=== PATIENT | female | born 1955 | race Hispanic/Latino ===

== ENCOUNTER 2016-02-26 07:21 | Outpatient (CLI) | payer BC ==
--- NOTE | 2016-02-26 11:47 | Mammography Report ---
BILATERAL DIGITAL SCREENING MAMMOGRAM WITH CAD: Comparison is made to a study on April 12, 2014. FINDINGS: Areas of fat necrosis with dystrophic calcifications in the left breast are stable. There are no new masses or suspicious calcifications. Stable parenchymal asymmetry in the upper left breast is noted. No architectural distortion is seen. IMPRESSION: Stable benign findings. BI-RADS CATEGORY: 2 = Benign ACR BI-RADS MAMMOGRAPHIC CODES: 0 = Needs additional imaging evaluation; 1 = Negative; 2 = Benign; 3 = Probably benign; 4 = Suspicious; 5 = Malignant; 6 = Known biopsy-proven malignancy COMMENT: 1. Dense breast tissue, i.e., adenosis, fibrocystic changes, etc., may obscure an underlying neoplasm. 2. Approximately 10% of cancers are not detected with mammography. 3. A negative mammography report should not delay biopsy if a clinically suspicious mass is present. RECOMMENDATION: Annual screening. COMMENT: [facility] follow-up letters are generated [facility].
== END 2016-02-26 07:22 | disposition home or self-care (01) ==
LOC: MAMMO 07:21
PROVIDERS: ATTEND Obstetrics & Gynecology
DX: Z12.31 Encounter for screening mammogram for malignant neoplasm of breast (principal)
CPT/HCPCS: 77067; G0202

== ENCOUNTER 2016-05-01 10:38 | Outpatient (CLI) | payer BC | END 2016-05-01 10:39 | disposition home or self-care (01) | LOC: LAB 10:38 | PROVIDERS: ATTEND Family Medicine | DX: E11.9 Type 2 diabetes mellitus without complications (principal); E78.00 Pure hypercholesterolemia, unspecified | CPT/HCPCS: 36415; 80061; 83036; 84439; 84443 ==

== ENCOUNTER 2017-03-12 07:48 | Outpatient (CLI) | payer BC ==
--- NOTE | 2017-03-12 11:03 | Mammography Report ---
Screening mammogram: The patient is post bilateral breast reduction surgery. 2 areas of asymmetry in the left breast consistent with fat necrosis. One area is associated with benign-appearing calcifications and there is another group in the right breast. The remainder of the breast pattern is mostly fatty replaced with mild architectural changes consistent with prior surgery. Compared to prior exam in February 2016 the fibroglandular pattern is unchanged. Minimal increase in benign appearing calcifications bilaterally. CAD views. Impression: Benign findings consistent with prior surgery. Recommendation: Annual mammogram followup. BI-RADS CATEGORY: 2 = Benign ACR BI-RADS MAMMOGRAPHIC CODES: 0 = Needs additional imaging evaluation; 1 = Negative; 2 = Benign; 3 = Probably benign; 4 = Suspicious; 5 = Malignant; 6 = Known biopsy-proven malignancy COMMENT: 1. Dense breast tissue, i.e., adenosis, fibrocystic changes, etc., may obscure an underlying neoplasm. 2. Approximately 10% of cancers are not detected with mammography. 3. A negative mammography report should not delay biopsy if a clinically suspicious mass is present.
== END 2017-03-12 07:49 | disposition home or self-care (01) ==
LOC: MAMMO 07:48
PROVIDERS: ATTEND Obstetrics & Gynecology
DX: Z12.31 Encounter for screening mammogram for malignant neoplasm of breast (principal); Z98.890 Other specified postprocedural states
CPT/HCPCS: 77067

== ENCOUNTER 2017-03-20 10:36 | Outpatient (CLI) | payer BC | END 2017-03-20 10:37 | disposition home or self-care (01) | LOC: LABHHL 10:36 | PROVIDERS: ATTEND Obstetrics & Gynecology | DX: Z01.419 Encounter for gynecological examination (general) (routine) without abnormal findings (principal) | CPT/HCPCS: 87591 ==

== ENCOUNTER 2017-03-24 12:20 | Outpatient (CLI) | payer BC | END 2017-03-24 12:21 | disposition home or self-care (01) | LOC: CARD 12:20 | PROVIDERS: ATTEND Podiatrist Foot & Ankle Surgery | DX: Z01.818 Encounter for other preprocedural examination (principal); I45.10 Unspecified right bundle-branch block; R00.8 Other abnormalities of heart beat | CPT/HCPCS: 93005; 93010 ==

== ENCOUNTER 2017-04-17 05:44 | Day surgery (SDC) | payer BC ==
[2017-04-17] MEDS ORDERED: MARCAINE 0.25% INFILTRATI ONE ×2 (06:33→08:10)
[2017-04-17] MEDS ORDERED: DECADRON ONE ×3 (06:33→09:33)
[2017-04-17] MEDS ORDERED: ANTIBIOTIC OINT TP ONE (06:33)
[2017-04-17] MEDS ORDERED: XYLOCAINE 1% 20 mL ONE (06:33)
[2017-04-17] MEDS ORDERED: NACL BACTERIOSTATIC INFILTRATI ONE (06:36)
[2017-04-17] MEDS ORDERED: CLEOCIN 600 MG/50 mL 600 MG/50 ML BAG IV NR (07:12)
[2017-04-17] MEDS ORDERED: VERSED IV NR (07:15)
--- NOTE | 2017-04-17 07:24 | Anesthesia Consultation ---
Anesthesia Consult and Med Hx - Airway Anesthetic Teeth Evaluation: Good ROM Head & Neck: Adequate Mental/Hyoid Distance: Adequate Mallampati Class: Class II Intubation Access Assessment: Good - Pulmonary Exam CTA: Yes - Cardiac Exam Cardiac Exam: RRR - Pre-Operative Health Status ASA Pre-Surgery Classification: ASA2 Proposed Anesthetic Plan: General - Pulmonary Hx Smoking: No Hx Sleep Apnea: No (JULIÁN PRE SCREEN HIGH RISK) - Cardiovascular System Hx Hypertension: Yes (X 21 YRS; denies chest pain) Hx Coronary Artery Disease: No - Central Nervous System CVA: No - Gastrointestinal Hx Gastroesophageal Reflux Disease: No - Endocrine Hx Renal Disease: No Hx Non-Insulin Dependent Diabetes: Yes (Accucheck 143) Hx Hypothyroidism: Yes - Other Systems Hx Cancer: No Hx Obesity: No
[2017-04-17] MEDS ORDERED: ZOFRAN IV PRN (07:25)
[2017-04-17] MEDS ORDERED: DILAUDID IV PRN (07:25)
--- NOTE | 2017-04-17 07:25 | Anesthesia Consultation ---
Anesthesia Consult and Med Hx Date of service: 04/17/17 - Airway Anesthetic Teeth Evaluation: Good, Dentures ROM Head & Neck: Adequate Mental/Hyoid Distance: Adequate Mallampati Class: Class II Intubation Access Assessment: Probably Good - Pulmonary Exam CTA: Yes - Pre-Operative Health Status ASA Pre-Surgery Classification: ASA2 Proposed Anesthetic Plan: General - Pulmonary Hx Smoking: No Hx Sleep Apnea: No (JULIÁN PRE SCREEN HIGH RISK) - Cardiovascular System Hx Hypertension: Yes (X 21 YRS; denies chest pain) Hx Coronary Artery Disease: No - Central Nervous System CVA: No - Gastrointestinal Hx Gastroesophageal Reflux Disease: No - Endocrine Hx Renal Disease: No Hx Non-Insulin Dependent Diabetes: Yes (Accucheck 143) Hx Hypothyroidism: Yes - Other Systems Hx Cancer: No Hx Obesity: No
--- NOTE | 2017-04-17 07:25 | Anesthesia Day of Surgery ---
Anesthesia Day of Surgery - Day of Surgery Patient Examined: Yes Patient H&P Reviewed: Yes Patient is NPO: Yes Beta Blockers: Yes (took last night)
--- NOTE | 2017-04-17 07:26 | Anesthesia Day of Surgery ---
Anesthesia Day of Surgery - Day of Surgery Patient Examined: Yes Patient H&P Reviewed: Yes Patient is NPO: Yes Beta Blockers: Yes (atenolol on 04/16 @8pm)
[2017-04-17] MEDS ORDERED: DIPRIVAN 10 MG/ML IV ONE (07:31)
[2017-04-17] MEDS ORDERED: XYLOCAINE MPF 2% ONE (07:31)
[2017-04-17] MEDS ORDERED: NACL 0.9% 1000 ML 1,000 ML IV SCH (08:00)
[2017-04-17] MEDS ORDERED: TRANSDERM-SCOP TD NR (08:00)
[2017-04-17] MEDS ORDERED: ZOFRAN IV NR (08:00)
[2017-04-17] MEDS ORDERED: PEPCID PO NR (08:00)
[2017-04-17] MEDS ORDERED: NACL 0.9% IR ONE (08:10)
[2017-04-17] MEDS ORDERED: DECADRON IV ONE ×2 (08:10)
[2017-04-17] MEDS ORDERED: XYLOCAINE 1% 20 mL INFILTRATI ONE (08:10)
[2017-04-17] MEDS ORDERED: ZOFRAN ONE (09:33)
[2017-04-17 10:41] VITALS: BP 99/61
--- NOTE | 2017-04-17 10:52 | XRay Report ---
BILATERAL FOOT RADIOGRAPHS INDICATION: Contracted MPJ. COMPARISON: 04/23/2016. FINDINGS: AP and lateral radiographs of both feet demonstrate new K-wires traversing the second digits and the second metatarsophalangeal joints. Overlying bandage artifacts noted. Stable remainder bones, including bilateral bunionectomies. Small bilateral plantar calcaneal spurs as well. CONCLUSION: Postoperative and few degenerative findings, as above. Thank you for the opportunity to participate in this patient's care.
--- NOTE | 2017-04-17 14:19 | Post Anesthesia Evaluation ---
- Post Anesthesia Evaluation Patient Participated: Yes Airway Patent: Yes Stable Respiratory Function: Yes Nausea/Vomiting: No Temp > 96.8F: Yes Pain Manageable: Yes Adequeate Hydration: Yes Anesthesia Complications: No
--- NOTE | 2017-04-18 14:40 | Operative Report ---
DATE OF SERVICE: 04/17/2017 PREOPERATIVE DIAGNOSES: 1. Painful contracted metatarsophalangeal joint, left foot. 2. Painful contracted metatarsophalangeal joint, right foot. SURGERY: 1. Metatarsophalangeal joint arthroplasty with KY fixation, second left. 2. Metatarsophalangeal joint arthroplasty with KY fixation, second right. ANESTHESIA: General. ESTIMATED BLOOD LOSS: Less than 20 mL. Pneumatic ankle tourniquet, bilateral. DESCRIPTION OF PROCEDURE: The patient was brought into the operating room, placed on the operating table in the supine position. Following intravenous sedation, the patient was given clindamycin intravenously. __0057___ atraumatic intubation, 10 mL of 1:1 mixture of 1% lidocaine plain plus 0.5% Marcaine plain was infiltrated into the left foot without incident after cleansing the area with alcohol. At this time, two well-padded pneumatic ankle tourniquet was placed above the ankles. At this time, the foot was then scrubbed, prepped and draped in the usual aseptic manner and the procedure was thus begun. At this time, attention was directed to a contracted dorsally second digit at the metatarsophalangeal joint of both left and right foot. There to be noted, an Esmarch was used to exsanguinate both feet to 250 mmHg. To be noted V-Y plasty was performed on the left foot and noted to be scar tissue from previous surgery. One full thickness incision with base being directed distally and directed proximally. There to be noted, careful dissection with care being taken to protect all vital neurovascular structures and a capsulotomy was performed at the second metatarsophalangeal joint. There to be noted, a McGlamry elevator was thus used to break up scar tissue at the second metatarsophalangeal joint. There to be noted, there was significant scar tissue at the second metatarsophalangeal joint. At that time, it was needed to be further reduction and deformity, so therefore the metatarsal head was decompressed with a rotating football bur and it was noted that further reduction was needed. Therefore, a 0.62 K-wire was retrograded across the second digit and retrograded across the metatarsal head in a plantarflexed position. At this time, the area was flushed copiously with normal sterile saline and all capsular structures with us reapproximated with the appropriate sutures 4-0 to help prevent further scar tissue. Subcutaneous closure was performed with 4-0 Vicryl followed by a subcuticular closure with 4-0 Prolene. There to be noted, the area was dressed with iodine gauze and dressed as appropriately. The same exact procedure was performed without additional admission on the right foot. Pneumatic ankle tourniquet was deflated. There to be noted that 1 mg of dexamethasone phosphate was infiltrated into the affected site. The patient tolerated the anesthesia and procedure well and atraumatic extubation was performed. The patient was transferred to recovery PACU and will be sent home with both written and oral instructions with postop surgical shoes, weightbearing to tolerance. JOB# [id number] SCOTT/MONIQUE
== END 2017-04-17 11:12 | disposition home or self-care (01) ==
LOC: OR 05:44
PROVIDERS: ATTEND Podiatrist Foot & Ankle Surgery
DX: M24.575 Contracture, left foot (principal); M24.574 Contracture, right foot; I10 Essential (primary) hypertension; E11.9 Type 2 diabetes mellitus without complications; E03.9 Hypothyroidism, unspecified; Z79.899 Other long term (current) drug therapy; Z88.8 Allergy status to other drugs, medicaments and biological substances; Z88.0 Allergy status to penicillin
CPT/HCPCS: 28899; 36415; 73620; 82962; 84132; J1100; J2250; J2405; J2704; J7030

== ENCOUNTER 2017-08-01 07:44 | Outpatient (CLI) | payer BC ==
[2017-08-01 07:53] LABS: Hematocrit 46.1 % (30.3-42.9); Hemoglobin 14.7 gm/dl (10.1-14.3); Mean Corpuscular HGB Conc 32 % (30-34); Mean Corpuscular Hemoglobin 27 pg (28-32); Mean Corpuscular Volume 84 fl (79-97); Platelet Count 287 K/mm3 (140-440); Red Blood Count 5.46 M/mm3 (3.65-5.03); Red Cell Distribution Width 14.8 % (13.2-15.2)
[2017-08-01 08:26] LABS: Alanine Aminotransferase 13 units/L (7-56); BUN/Creatinine Ratio 32; Blood Urea Nitrogen 19 mg/dL (7-17); Calcium 9.8 mg/dL (8.4-10.2); Chol/HDL Ratio 5.86 %; Free T4 (Free Thyroxine) 1.23 ng/dL (0.76-1.46); HDL Cholesterol 38 mg/dL (40-59); Hemolysis Index 8; LDL Cholesterol,Direct 150 mg/dL (50-130)
--- NOTE | 2017-08-01 08:47 | XRay Report ---
CERVICAL SPINE, 3 views: History: Chronic neck pain. Findings: There is normal bone mineralization. Mild degenerative disc disease is identified at all levels. The facet joints are unremarkable. No evidence for fracture, subluxation or bone lesion. The dens is intact. The prevertebral soft tissues are normal thickness. Impression: Mild multilevel degenerative disc disease. No acute process.
--- NOTE | 2017-08-01 08:47 | XRay Report ---
LUMBOSACRAL SPINE, 3 VIEWS: History: Low back pain radiating to right leg. Findings: There is normal bone mineralization. No evidence for compression deformity, subluxation or bone lesion. Mild to moderate degenerative disc disease is identified at all levels. L5-S1 appears most affected. There is mild facet arthropathy at all levels as well. The sacrum and SI joints are unremarkable. Impression: Lumbar spondylosis. No acute process.
[2017-08-01 09:13] LABS: Eosinophils % (Manual) 0 % (0.0-4.3); Total Cells Counted 100
[2017-08-01 09:14] LABS: Giant Platelets Rare; RBC Morphology Normal
[2017-08-01 09:15] LABS: Platelet Estimate Cons
== END 2017-08-01 07:45 | disposition home or self-care (01) ==
LOC: XRAY 07:44
PROVIDERS: ATTEND Family Medicine
DX: M47.896 Other spondylosis, lumbar region (principal); M50.30 Other cervical disc degeneration, unspecified cervical region; E11.65 Type 2 diabetes mellitus with hyperglycemia; E55.9 Vitamin D deficiency, unspecified; Z79.899 Other long term (current) drug therapy; G47.33 Obstructive sleep apnea (adult) (pediatric); E78.01 Familial hypercholesterolemia; E03.4 Atrophy of thyroid (acquired); I10 Essential (primary) hypertension; E03.9 Hypothyroidism, unspecified
CPT/HCPCS: 36415; 72040; 72100; 80053; 80061; 82306; 83036; 84439; 84443; 85007; 85025

== ENCOUNTER 2017-11-27 10:49 | Outpatient (CLI) | payer BC ==
[2017-11-27 11:21] LABS: Basophils # (Auto) 0.1 K/mm3 (0.0-0.1); Basophils % (Auto) 0.8 % (0.0-1.8); Eosinophils # (Auto) 0.1 K/mm3 (0.0-0.4); Eosinophils % (Auto) 1.1 % (0.0-4.3); Hematocrit 45.6 % (30.3-42.9); Lymphocytes # (Auto) 3.3 K/mm3 (1.2-5.4); Lymphocytes % (Auto) 34.2 % (13.4-35.0); Mean Corpuscular HGB Conc 33 % (30-34); Mean Corpuscular Hemoglobin 28 pg (28-32); Mean Corpuscular Volume 84 fl (79-97); Monocytes # (Auto) 0.7 K/mm3 (0.0-0.8); Monocytes % (Auto) 6.9 % (0.0-7.3); Platelet Count 245 K/mm3 (140-440); Red Blood Count 5.43 M/mm3 (3.65-5.03); Red Cell Distribution Width 14.9 % (13.2-15.2)
[2017-11-27 11:32] LABS: Alanine Aminotransferase 13 units/L (7-56); Albumin 4.5 g/dL (3.9-5); BUN/Creatinine Ratio 28; Blood Urea Nitrogen 17 mg/dL (7-17); Calcium 9.5 mg/dL (8.4-10.2); Chol/HDL Ratio 5.14 %; HDL Cholesterol 41 mg/dL (40-59); Hemolysis Index 7; LDL Cholesterol,Direct 158 mg/dL (50-130)
[2017-11-27 11:57] LABS: Free T4 (Free Thyroxine) 1.27 ng/dL (0.76-1.46)
== END 2017-11-27 10:50 | disposition home or self-care (01) ==
LOC: LAB 10:49
PROVIDERS: ATTEND Family Medicine
DX: E11.65 Type 2 diabetes mellitus with hyperglycemia (principal); E03.4 Atrophy of thyroid (acquired); R53.83 Other fatigue; E78.00 Pure hypercholesterolemia, unspecified; I10 Essential (primary) hypertension; E03.9 Hypothyroidism, unspecified; Z88.0 Allergy status to penicillin; Z98.890 Other specified postprocedural states; Z88.5 Allergy status to narcotic agent
CPT/HCPCS: 36415; 80053; 80061; 82306; 83036; 84439; 84443; 85025

== ENCOUNTER 2018-03-30 12:24 | Outpatient (CLI) | payer BC ==
[2018-03-30 12:47] LABS: Basophils # (Auto) 0.1 K/mm3 (0.0-0.1); Basophils % (Auto) 0.9 % (0.0-1.8); Eosinophils # (Auto) 0.1 K/mm3 (0.0-0.4); Eosinophils % (Auto) 0.8 % (0.0-4.3); Hematocrit 44.9 % (30.3-42.9); Hemoglobin 14.6 gm/dl (10.1-14.3); Mean Corpuscular HGB Conc 32 % (30-34); Mean Corpuscular Volume 84 fl (79-97); Monocytes # (Auto) 0.8 K/mm3 (0.0-0.8); Monocytes % (Auto) 6.8 % (0.0-7.3); Platelet Count 267 K/mm3 (140-440); Red Blood Count 5.35 M/mm3 (3.65-5.03); Red Cell Distribution Width 14.7 % (13.2-15.2)
[2018-03-30 13:21] LABS: Alanine Aminotransferase 14 units/L (7-56); Albumin 4.5 g/dL (3.9-5); BUN/Creatinine Ratio 27; Blood Urea Nitrogen 16 mg/dL (7-17); Hemolysis Index 8; LDL Cholesterol,Direct 133 mg/dL (50-130)
[2018-03-30 13:32] LABS: Chol/HDL Ratio 4.58 %; HDL Cholesterol 41 mg/dL (40-59)
[2018-03-30 14:27] LABS: Free T4 (Free Thyroxine) 1.29 ng/dL (0.76-1.46)
== END 2018-03-30 12:25 | disposition home or self-care (01) ==
LOC: LAB 12:24
PROVIDERS: ATTEND Family Medicine
DX: E11.65 Type 2 diabetes mellitus with hyperglycemia (principal); E55.9 Vitamin D deficiency, unspecified; L65.8 Other specified nonscarring hair loss; E66.3 Overweight; E78.01 Familial hypercholesterolemia; Z79.899 Other long term (current) drug therapy
CPT/HCPCS: 36415; 80053; 80061; 82306; 83036; 84439; 84443; 85025

== ENCOUNTER 2018-06-01 06:10 | Day surgery (SDC) | payer BC ==
[2018-06-01] MEDS ORDERED: WATER FOR IRRIG STERILE IR ONE (07:24)
[2018-06-01] MEDS ORDERED: WATER FOR IRRIG STERILE ONE (07:24)
[2018-06-01] MEDS ORDERED: DIPRIVAN 10 MG/ML IV ONE ×2 (07:42→08:20)
[2018-06-01] MEDS ORDERED: VERSED ONE (07:42)
[2018-06-01] MEDS ORDERED: XYLOCAINE 2% INFILTRATI ONE (07:43)
[2018-06-01] MEDS ORDERED: NACL 0.9% 1000 ML 1,000 ML IV SCH (08:00)
--- NOTE | 2018-06-01 08:29 | Anesthesia Day of Surgery ---
Anesthesia Day of Surgery - Day of Surgery Patient Examined: Yes Patient H&P Reviewed: Yes Patient is NPO: Yes Beta Blockers: Yes
--- NOTE | 2018-06-01 08:30 | Anesthesia Consultation ---
Anesthesia Consult and Med Hx Date of service: 06/01/18 - Airway Anesthetic Teeth Evaluation: Good ROM Head & Neck: Adequate Mental/Hyoid Distance: Adequate Mallampati Class: Class III Intubation Access Assessment: Good - Pulmonary Exam CTA: No - Cardiac Exam Cardiac Exam: No Murmur - Pre-Operative Health Status ASA Pre-Surgery Classification: ASA3 Proposed Anesthetic Plan: MAC - Pulmonary Hx Smoking: No Hx Sleep Apnea: No (JULIÁN PRE SCREEN HIGH RISK) - Cardiovascular System Hx Hypertension: Yes Hx Coronary Artery Disease: No - Central Nervous System CVA: No - Gastrointestinal Hx Gastroesophageal Reflux Disease: No - Endocrine Hx Renal Disease: No Hx Non-Insulin Dependent Diabetes: Yes Hx Hypothyroidism: Yes - Other Systems Hx Cancer: No Hx Obesity: No
--- NOTE | 2018-06-01 08:30 | Operative Report ---
Operative Report Operative Report: DATE OF SERVICE: 06/01/18 SURGEON: Kenneth Pandey MD COLONOSCOPY with biopsy REPORT PREOPERATIVE AND POSTOPERATIVE DIAGNOSIS: Screening colonoscopy DESCRIPTION OF PROCEDURE: The colonoscope was passed to the terminal ileum as identified by the ileal tissue. Scope was carefully withdrawn. Retroflexion was performed in the rectum. At the end of procedure, the scope was cleaned using normal technique. Vital signs monitored continuously throughout. SEDATION: Provided by [facility]. Quality of the prep was good. COMPLICATIONS: None. ESTIMATED BLOOD LOSS: 40cc FINDINGS: * Normal rectal exam * Terminal ileum with multiple superficial ulcerations and areas of erythema. Multiple biopsies obtained to r/o primary IBD. * Minimal melanosis coli of the cecum * Mild possible inflammation of the ascending colon with localized area of erythem. Given the ulceration in the terminal ileum biopsies were obtained to r/o primary IBD of the colon, with biopsies from the cecum, ascending, transverse, and descending colon. When the biopsy was obtained from the descending colon, the biopsy spot immediately began to bleed and a moderate sized hematoma began to develop. The bleeding did not spontaneously resolve so a single hemoclip was placed to stop the bleeding, with hemostasis attained * Mild diverticulosis of the sigmoid colon * Small non bleeding internal hemorrhoids * Remainder of the exam was normal RECOMMENDATIONS: * For colon cancer screening purposes, repeat colonoscopy 10 years * F/u biopsy results, if there is concern for primary IBD on the biopsies then patient will return to Dr. Peralta for further evaluation and management
[2018-06-02 18:30] VITALS: BP 101/56
== END 2018-06-01 06:11 | disposition home or self-care (01) ==
LOC: GIO 06:10
PROVIDERS: ATTEND Student in an Organized Health Care Education/Training Program
DX: Z12.11 Encounter for screening for malignant neoplasm of colon (principal); K31.89 Other diseases of stomach and duodenum; K57.30 Diverticulosis of large intestine without perforation or abscess without bleeding; K64.8 Other hemorrhoids; K62.89 Other specified diseases of anus and rectum; E78.00 Pure hypercholesterolemia, unspecified; I10 Essential (primary) hypertension; M19.90 Unspecified osteoarthritis, unspecified site; E11.9 Type 2 diabetes mellitus without complications; E03.9 Hypothyroidism, unspecified; Z88.0 Allergy status to penicillin; Z79.899 Other long term (current) drug therapy; Z98.890 Other specified postprocedural states; Z88.8 Allergy status to other drugs, medicaments and biological substances
CPT/HCPCS: 45380; 88305; J2250; J2704; J7030

== ENCOUNTER 2018-06-15 12:55 | Outpatient (CLI) | payer BC ==
--- NOTE | 2018-06-16 00:52 | XRay Report ---
PROCEDURE: XR ANKLE 3+V LT TECHNIQUE: 3 views of the left ankle obtained. HISTORY: Local infection of the skin and subcutaneous tissue COMPARISONS: None FINDINGS: No acute fracture or dislocation. No radiographic evidence for osteomyelitis. IMPRESSION: No radiographic evidence for osteomyelitis.. This document is electronically signed by Ignacio Chaves MD., June 16 2018 12:50:29 AM ET
--- NOTE | 2018-06-16 00:55 | XRay Report ---
PROCEDURE: XR FOOT 3+V LT TECHNIQUE: 3 views of the left foot obtained. HISTORY: PAIN COMPARISONS: 04/17/2017. FINDINGS: No acute fracture or dislocation. No radiographic evidence for osteomyelitis. IMPRESSION: No radiographic evidence for osteomyelitis. If symptoms persist or worsen, three-phase bone scan or M RI could be considered as warranted.. This document is electronically signed by Ignacio Chaves MD., June 16 2018 12:52:54 AM ET
== END 2018-06-15 12:56 | disposition home or self-care (01) ==
LOC: XRAY 12:55
PROVIDERS: ATTEND Podiatrist Foot & Ankle Surgery
DX: M25.572 Pain in left ankle and joints of left foot (principal); L08.9 Local infection of the skin and subcutaneous tissue, unspecified; E78.00 Pure hypercholesterolemia, unspecified; I10 Essential (primary) hypertension; E11.9 Type 2 diabetes mellitus without complications; E03.9 Hypothyroidism, unspecified

== ENCOUNTER 2018-07-14 09:36 | Outpatient (CLI) | payer BC ==
[2018-07-14 10:45] LABS: Basophils # (Auto) 0.1 K/mm3 (0.0-0.1); Basophils % (Auto) 0.5 % (0.0-1.8); Eosinophils # (Auto) 0.1 K/mm3 (0.0-0.4); Eosinophils % (Auto) 1.1 % (0.0-4.3); Hematocrit 41.1 % (30.3-42.9); Hemoglobin 13.8 gm/dl (10.1-14.3); Lymphocytes # (Auto) 3.1 K/mm3 (1.2-5.4); Lymphocytes % (Auto) 26.8 % (13.4-35.0); Mean Corpuscular HGB Conc 34 % (30-34); Mean Corpuscular Volume 81 fl (79-97); Monocytes # (Auto) 0.7 K/mm3 (0.0-0.8); Monocytes % (Auto) 5.8 % (0.0-7.3); Platelet Count 275 K/mm3 (140-440); Red Blood Count 5.06 M/mm3 (3.65-5.03); Red Cell Distribution Width 15.1 % (13.2-15.2)
[2018-07-14 10:55] LABS: INR 0.85 (0.87-1.13)
[2018-07-14 11:11] LABS: Alanine Aminotransferase 14 units/L (7-56); BUN/Creatinine Ratio 23; Blood Urea Nitrogen 16 mg/dL (7-17); Calcium 9.4 mg/dL (8.4-10.2); Hemolysis Index 6
[2018-07-14 11:13] LABS: Bilirubin,Direct < 0.2 mg/dL (0-0.2)
[2018-07-14 11:20] LABS: Erythrocyte Sedimentation Rate 21 mm/Hr (0-20)
== END 2018-07-14 09:37 | disposition home or self-care (01) ==
LOC: LAB 09:36
PROVIDERS: ATTEND Student in an Organized Health Care Education/Training Program
DX: R14.0 Abdominal distension (gaseous) (principal); R10.13 Epigastric pain; R14.2 Eructation; E78.00 Pure hypercholesterolemia, unspecified; I10 Essential (primary) hypertension; E11.9 Type 2 diabetes mellitus without complications; E03.9 Hypothyroidism, unspecified
CPT/HCPCS: 36415; 80048; 80076; 85025; 85610; 85652; 86140; 86706; 86709; 86803; 87338

== ENCOUNTER 2018-07-29 11:50 | Outpatient (CLI) | payer BC ==
[2018-07-29 12:34] LABS: Basophils # (Auto) 0.1 K/mm3 (0.0-0.1); Basophils % (Auto) 0.9 % (0.0-1.8); Eosinophils # (Auto) 0.1 K/mm3 (0.0-0.4); Eosinophils % (Auto) 1.2 % (0.0-4.3); Hematocrit 41.2 % (30.3-42.9); Hemoglobin 13.4 gm/dl (10.1-14.3); Lymphocytes # (Auto) 3.3 K/mm3 (1.2-5.4); Lymphocytes % (Auto) 28.7 % (13.4-35.0); Mean Corpuscular HGB Conc 32 % (30-34); Mean Corpuscular Volume 82 fl (79-97); Monocytes # (Auto) 0.9 K/mm3 (0.0-0.8); Monocytes % (Auto) 7.5 % (0.0-7.3); Platelet Count 258 K/mm3 (140-440); Red Blood Count 5.01 M/mm3 (3.65-5.03)
[2018-07-29 13:24] LABS: Alanine Aminotransferase 12 units/L (7-56); Albumin 4.2 g/dL (3.9-5); BUN/Creatinine Ratio 30; Blood Urea Nitrogen 18 mg/dL (7-17); Calcium 9.6 mg/dL (8.4-10.2); Chol/HDL Ratio 4.53 %; HDL Cholesterol 43 mg/dL (40-59); Hemolysis Index 5; LDL Cholesterol,Direct 130 mg/dL (50-130)
[2018-07-29 13:31] LABS: Free T4 (Free Thyroxine) 1.25 ng/dL (0.76-1.46)
== END 2018-07-29 11:51 | disposition home or self-care (01) ==
LOC: LAB 11:50
PROVIDERS: ATTEND Family Medicine
DX: E03.4 Atrophy of thyroid (acquired) (principal); E78.01 Familial hypercholesterolemia; Z79.899 Other long term (current) drug therapy; E11.9 Type 2 diabetes mellitus without complications; E03.9 Hypothyroidism, unspecified; I10 Essential (primary) hypertension
CPT/HCPCS: 36415; 80053; 80061; 83036; 84439; 84443; 85025

== ENCOUNTER 2018-10-02 13:33 | Outpatient (CLI) | payer BC ==
--- NOTE | 2018-10-02 14:48 | Mammography Report ---
Bilateral DIGITAL DIAGNOSTIC MAMMOGRAM WITH CAD, 10/02/2018 INDICATION: Palpable lump left breast, increasing in size. Bilateral breast tingling TECHNIQUE: Digital bilateral mammographic imaging was performed. This examination was interpreted with the benefit of Computer-aided Detection analysis. COMPARISON: Mammograms dated 03/25/2013, 03/12/2017 02/26/2016, 03/31/2018 FINDINGS: Breast Density: The breasts are almost entirely fatty. Bilateral postreduction changes are noted. There is associated fat necrosis with dystrophic calcifica tions showing normal evolution of the process. No suspicious abnormality seen in either breast. The a alisia of palpable concern in the left breast has been shown previously to correlate with fat necrosis f rom prior reduction surgery. It is not significantly changed compared with the multiple prior mammogr ams. IMPRESSION: BI-RADS Category 2: Benign. Recommend routine screening mammography in one year clinical correlatio n with respect to bilateral breast tingling and numbness is recommended. Further evaluation is warrtaylor vargas to evaluate the bilateral tingling and palpable abnormality in the left breast as clinically abhilash cated.. A "normal" or negative report should not discourage follow up or biopsy of a clinically significant f inding. A written summary of these findings will be mailed to the patient. The patient will be entered into a mammography reporting system which will generate a reminder letter for the patient's next appointmen t at the appropriate interval. According to the [employer], yearly mammograms are recommended starting at age 40 and continuing as long as a woman is in good health. Breast MRI is recommended for women with an cheri roximately 20-25% or greater lifetime risk of breast cancer, including women with a strong family his tory of breast or ovarian cancer and women who have been treated for Hodgkin's disease. Signer Name: Krissy Guerra MD Signed: 10/02/2018 2:43 PM Workstation Name: [employer]
--- NOTE | 2018-10-02 14:57 | XRay Report ---
Left ankle, 3 views INDICATION: Unspecified fracture of left lower leg, subsequent encounter for. COMPARISON: 06/15/2018 IMPRESSION: No acute osseous or soft tissue abnormality. No significant DJD. A moderate plantar s pur is identified. Signer Name: Stew Louise Jr, MD Signed: 10/02/2018 2:53 PM Workstation Name: [id number]
== END 2018-10-02 13:34 | disposition home or self-care (01) ==
LOC: MAMMO 13:33
PROVIDERS: ATTEND Obstetrics & Gynecology
DX: N63.20 Unspecified lump in the left breast, unspecified quadrant (principal); S82.92XD Unspecified fracture of left lower leg, subsequent encounter for closed fracture with routine healing; M77.8 Other enthesopathies, not elsewhere classified; E78.00 Pure hypercholesterolemia, unspecified; I10 Essential (primary) hypertension; E03.9 Hypothyroidism, unspecified; E11.9 Type 2 diabetes mellitus without complications; X58.XXXD Exposure to other specified factors, subsequent encounter
CPT/HCPCS: 77066

== ENCOUNTER 2019-04-23 07:14 | Outpatient (CLI) | payer BC, MEDICARE ==
[2019-04-23 07:34] LABS: Basophils # (Auto) 0.1 K/mm3 (0.0-0.1); Basophils % (Auto) 0.8 % (0.0-1.8); Eosinophils # (Auto) 0.1 K/mm3 (0.0-0.4); Hematocrit 44.9 % (30.3-42.9); Lymphocytes # (Auto) 3.5 K/mm3 (1.2-5.4); Lymphocytes % (Auto) 39.8 % (13.4-35.0); Mean Corpuscular HGB Conc 34 % (30-34); Mean Corpuscular Volume 84 fl (79-97); Monocytes # (Auto) 0.6 K/mm3 (0.0-0.8); Monocytes % (Auto) 7.3 % (0.0-7.3); Platelet Count 217 K/mm3 (140-440); Red Blood Count 5.36 M/mm3 (3.65-5.03); Red Cell Distribution Width 14.3 % (13.2-15.2)
[2019-04-23 08:18] LABS: Free T4 (Free Thyroxine) 1.29 ng/dL (0.76-1.46)
[2019-04-23 09:51] LABS: Alanine Aminotransferase 14 units/L (7-56); Albumin 4.4 g/dL (3.9-5); BUN/Creatinine Ratio 26; Blood Urea Nitrogen 18 mg/dL (7-17); Chol/HDL Ratio 5.64 %; HDL Cholesterol 34 mg/dL (40-59); Hemolysis Index 11; LDL Cholesterol,Direct 127 mg/dL (50-130)
== END 2019-04-23 07:15 | disposition home or self-care (01) ==
LOC: LAB 07:14
PROVIDERS: ATTEND Family Medicine
DX: Z00.00 Encounter for general adult medical examination without abnormal findings (principal)
CPT/HCPCS: 36415; 80053; 80061; 82306; 83036; 84439; 84443; 85025

== ENCOUNTER 2019-10-29 10:17 | Outpatient (CLI) | payer BC, MEDICARE ==
[2019-10-29 11:28] LABS: Basophils # (Auto) 0.1 K/mm3 (0.0-0.1); Basophils % (Auto) 0.5 % (0.0-1.8); Eosinophils # (Auto) 0.1 K/mm3 (0.0-0.4); Eosinophils % (Auto) 1.4 % (0.0-4.3); Hematocrit 38.3 % (30.3-42.9); Hemoglobin 12.3 gm/dl (10.1-14.3); Lymphocytes # (Auto) 2.3 K/mm3 (1.2-5.4); Lymphocytes % (Auto) 22.5 % (13.4-35.0); Mean Corpuscular HGB Conc 32 % (30-34); Mean Corpuscular Volume 82 fl (79-97); Monocytes # (Auto) 0.6 K/mm3 (0.0-0.8); Monocytes % (Auto) 5.7 % (0.0-7.3); Platelet Count 254 K/mm3 (140-440); Red Blood Count 4.66 M/mm3 (3.65-5.03); Red Cell Distribution Width 15.3 % (13.2-15.2)
[2019-10-29 11:47] LABS: Alanine Aminotransferase 14 units/L (7-56); Albumin 4.1 g/dL (3.9-5); Blood Urea Nitrogen 16 mg/dL (7-17); Calcium 9.8 mg/dL (8.4-10.2); HDL Cholesterol 45 mg/dL (40-59); Hemolysis Index 0; LDL Cholesterol,Direct 63 mg/dL (50-130)
[2019-10-29 11:51] LABS: BUN/Creatinine Ratio 32
== END 2019-10-29 10:18 | disposition home or self-care (01) ==
LOC: LAB 10:17
PROVIDERS: ATTEND Obstetrics & Gynecology
DX: R53.83 Other fatigue (principal); N95.1 Menopausal and female climacteric states; E53.8 Deficiency of other specified B group vitamins; R68.82 Decreased libido
CPT/HCPCS: 36415; 80053; 80061; 82306; 82607; 82670; 83001; 84436; 84443; 84481; 85025; 86800; 87591

== ENCOUNTER 2019-11-25 10:29 | Outpatient (CLI) | payer BC, MEDICARE ==
[2019-11-25 11:04] LABS: Basophils # (Auto) 0.1 K/mm3 (0.0-0.1); Basophils % (Auto) 0.4 % (0.0-1.8); Hemoglobin 13.6 gm/dl (10.1-14.3); Lymphocytes # (Auto) 2.1 K/mm3 (1.2-5.4); Lymphocytes % (Auto) 15.7 % (13.4-35.0); Mean Corpuscular HGB Conc 33 % (30-34); Mean Corpuscular Volume 83 fl (79-97); Monocytes # (Auto) 0.6 K/mm3 (0.0-0.8); Monocytes % (Auto) 4.9 % (0.0-7.3); Platelet Count 201 K/mm3 (140-440); Red Blood Count 5.09 M/mm3 (3.65-5.03); Red Cell Distribution Width 17.1 % (13.2-15.2)
[2019-11-25 11:23] LABS: Erythrocyte Sedimentation Rate 7 mm/Hr (0-20)
[2019-11-25 11:28] LABS: Alanine Aminotransferase 22 units/L (7-56); Albumin 4.1 g/dL (3.9-5); Blood Urea Nitrogen 19 mg/dL (7-17); Calcium 9.8 mg/dL (8.4-10.2); Hemolysis Index 5
[2019-11-25 11:31] LABS: BUN/Creatinine Ratio 38
== END 2019-11-25 10:30 | disposition home or self-care (01) ==
LOC: LAB 10:29
PROVIDERS: ATTEND Internal Medicine Rheumatology
DX: M35.3 Polymyalgia rheumatica (principal)
CPT/HCPCS: 36415; 80053; 85025; 85652; 86140

== ENCOUNTER 2019-12-22 09:32 | Outpatient (CLI) | payer BC, MEDICARE | END 2019-12-22 09:33 | disposition home or self-care (01) | LOC: LAB 09:32 | PROVIDERS: ATTEND Internal Medicine Rheumatology | DX: M26.69 Other specified disorders of temporomandibular joint (principal) | CPT/HCPCS: 36415; 85652; 86140 ==

== ENCOUNTER 2019-12-28 08:25 | Day surgery (SDC) | payer BC, MEDICARE ==
[2019-12-27 14:04] LABS: Basophils # (Auto) 0.1 K/mm3 (0.0-0.1); Basophils % (Auto) 0.5 % (0.0-1.8); Eosinophils % (Auto) 0.1 % (0.0-4.3); Hematocrit 42.8 % (30.3-42.9); Hemoglobin 14.3 gm/dl (10.1-14.3); Lymphocytes # (Auto) 2.7 K/mm3 (1.2-5.4); Lymphocytes % (Auto) 21.6 % (13.4-35.0); Mean Corpuscular HGB Conc 34 % (30-34); Mean Corpuscular Volume 82 fl (79-97); Monocytes # (Auto) 0.8 K/mm3 (0.0-0.8); Monocytes % (Auto) 6.6 % (0.0-7.3); Platelet Count 176 K/mm3 (140-440); Red Blood Count 5.22 M/mm3 (3.65-5.03); Red Cell Distribution Width 18.2 % (13.2-15.2)
[2019-12-27 14:22] LABS: Alanine Aminotransferase 23 units/L (7-56); Blood Urea Nitrogen 17 mg/dL (7-17); Calcium 9.4 mg/dL (8.4-10.2); Hemolysis Index 36
[2019-12-27 14:23] LABS: BUN/Creatinine Ratio 34
[2019-12-28] MEDS ORDERED: HYDROmorphone 1 MG/1 ML INJ IV PRN ×2 (08:47)
[2019-12-28] MEDS ORDERED: ONDANSETRON 4 MG/2 ML INJ IV PRN (08:47)
--- NOTE | 2019-12-28 08:48 | Anesthesia Day of Surgery ---
Anesthesia Day of Surgery - Day of Surgery Patient Examined: Yes Patient H&P Reviewed: Yes Patient is NPO: Yes
--- NOTE | 2019-12-28 08:49 | Anesthesia Consultation ---
Anesthesia Consult and Med Hx Date of service: 12/28/19 - Airway Anesthetic Teeth Evaluation: Good, Crowns ROM Head & Neck: Adequate Mental/Hyoid Distance: Adequate Mallampati Class: Class II Intubation Access Assessment: Good - Pre-Operative Health Status ASA Pre-Surgery Classification: ASA2 Proposed Anesthetic Plan: General (Pt requests GA) - Pulmonary Hx Smoking: No Hx Respiratory Symptoms: No (+2FS) Hx Sleep Apnea: No (JULIÁN PRE SCREEN HIGH RISK) - Cardiovascular System Hx Hypertension: Yes Hx Coronary Artery Disease: No (ETT <5 years ago; ok per pt) Hx Peripheral Vascular Disease: Yes (GCA) - Central Nervous System CVA: No Hx Psychiatric Problems: Yes - Gastrointestinal Hx Gastroesophageal Reflux Disease: No - Endocrine Hx Renal Disease: No Hx Liver Disease: No Hx Non-Insulin Dependent Diabetes: Yes Hx Thyroid Disease: Yes Hx Hypothyroidism: Yes - Other Systems Hx Alcohol Use: Yes (Occas) Hx Cancer: No Hx Obesity: No
[2019-12-28] MEDS ORDERED: LACTATED RINGERS 1,000 ML IV SCH (09:00)
[2019-12-28] MEDS ORDERED: MIDAZOLAM 2 MG/2 ML INJ IV NR (09:00)
[2019-12-28] MEDS ORDERED: propofoL 200 MG/20 ML VIAL IV ONE (10:20)
[2019-12-28] MEDS ORDERED: KETOROLAC 30 MG/1 ML INJ ONE (10:27)
[2019-12-28] MEDS ORDERED: LIDOCAINE (1%) 10 MG/1 ML VIAL 20 ML MDV ONE (10:27)
[2019-12-28] MEDS ORDERED: ONDANSETRON 4 MG/2 ML INJ ONE (10:27)
[2019-12-28] MEDS ORDERED: SODIUM BICARBONATE 2 MEQ/2 ML SYRINGE ONE ×2 (10:27→11:31)
[2019-12-28] MEDS ORDERED: BUPIVACAINE/PF (0.5%) 5 MG/1 ML 10 ML VIAL INFILTRATI ONE ×2 (10:27→11:15)
[2019-12-28] MEDS ORDERED: dexAMETHasone 20 MG/5 ML VIAL ONE (10:27)
[2019-12-28] MEDS ORDERED: fentaNYL 100 MCG/2 ML INJ ONE (10:28)
[2019-12-28] MEDS ORDERED: SODIUM CHLORIDE 0.9% IRR 1,500 ML BOTTLE IR ONE (10:52)
--- NOTE | 2019-12-28 11:39 | Short Stay Summary ---
Short Stay Documentation Date of service: 12/28/19 Narrative H&P: See H&P - Allergies and Medications Current Medications: Allergies metformin Allergy (Verified 12/27/19 12:54) Rash Penicillins Allergy (Verified 12/27/19 12:54) Dizziness Home Medications Medication Instructions Recorded Confirmed Last Taken Type Levothyroxine [Synthroid] 50 mcg PO QHS 12/01/15 12/28/19 12/28/19 06:30 History glipiZIDE [Glucotrol] 10 mg PO BID 12/01/15 12/28/19 12/27/19 22:00 History Dapagliflozin Propanediol [Farxiga] 10 mg PO QHS 04/09/17 12/28/19 12/27/19 22:00 History Trulicity 1.5 mg SUB-Q QWEEK 06/01/18 12/28/19 12/23/19 08:00 History AtorvaSTATin [Lipitor] 20 mg PO QHS 12/27/19 12/28/19 12/27/19 22:00 History Chlorthalidone [Thalitone] 12.5 mg PO HS 12/27/19 12/28/19 12/27/19 22:00 History Hydroxyzine HCl [hydrOXYzine] 25 mg PO PRN PRN 12/27/19 12/28/19 12/27/19 22:00 History Prednisone [predniSONE (Mindy) ER 7.5 mg PO BID 12/27/19 12/28/19 12/27/19 22:00 History TAB] Sertraline [Zoloft] 50 mg PO QDAY 12/27/19 12/28/19 12/27/19 22:00 History atenoloL [Tenormin] 25 mg PO HS 12/27/19 12/28/19 12/27/19 22:00 History Active Medications Hydromorphone HCl (Dilaudid) 0.25 mg IV Q10MIN PRN PRN Reason: Pain, Moderate (4-6) Hydromorphone HCl (Dilaudid) 0.5 mg IV Q10MIN PRN PRN Reason: Pain , Severe (7-10) Clindamycin HCl (Cleocin 900 Mg/50 Ml) 900 mg in 50 mls @ 100 mls/hr IV PREOP NR; Protocol Stop: 12/28/19 23:59 Lactated Ringer's (Lactated Ringers) 1,000 mls @ 125 mls/hr IV DIRECT JUDY Last Admin: 12/28/19 09:35 Dose: 125 mls/hr Documented by: Midazolam HCl (Versed) 2 mg IV PREOP NR Stop: 12/28/19 23:59 Last Admin: 12/28/19 10:10 Dose: 2 mg Documented by: Ondansetron HCl (Zofran) 4 mg IV ONCE PRN PRN Reason: Nausea And Vomiting Stop: 12/28/19 18:00 - Brief post op/procedure progress note Date of procedure: 12/28/19 Pre-op diagnosis: Giant Cell Arteritis Post-op diagnosis: same Procedure: Right Temporal Artery Biopsy Anesthesia: KELLIA Surgeon: LAURO CANTRELL Estimated blood loss: minimal Pathology: list (Right temporal artery) Specimen disposition: to lab Condition: stable - Disposition Condition at discharge: Good Disposition: DC-01 TO HOME OR SELFCARE Short Stay Discharge Plan Activity: no restrictions Wound: open to air, keep clean and dry, other (Okay to shower and wash the wound with soap and water but do not soak in water for 2 weeks.) Follow up with: LAURO CANTRELL MD [Staff Physician] - 7 Days Prescriptions: HYDROcodone/APAP 7.5-325 [[place] 7.5/325] 1 each PO Q6HR PRN #30 tablet PRN Reason: Pain
--- NOTE | 2019-12-28 11:48 | Operative Report ---
Operative Report Operative Report: Date of Procedure: 12/28/2019 Pre-operative Diagnosis: Possible Giant Cell Arteritis Post-operative Diagnosis: Same Procedure(s): 1. Right Temporal Artery Biopsy Surgeon: Ruben Chapa M.D. Photographer Finish: None Anesthesia: General Endotracheal Anesthesia with LMA/Local EBL: Minimal Counts: Correct Complications: None Condition: Stable Findings: Right temporal artery was identified and found to be intact without significant inflammation or overt signs of temporal arteritis. Specimen: Right temporal artery was sent to pathology. Indication: The patient is a 64-year-old female who has been complaining of headaches and jaw pain who has been started on prednisone for presumed giant cell arteritis. She is been having significant difficulty controlling her glucose levels secondary to the prednisone and needs a temporal artery biopsy to confirm or refute the diagnosis of giant cell arteritis to determine the continued need for steroids. She has been given the risk, benefits, and alternative procedures and consented to the procedure. Description of Procedure: The patient was brought to the operating room and laid in supine position. After a timeout was performed patient was administered general endotracheal anesthesia. Ultrasound was used to evaluate both temporal arteries and the decision was made to biopsy the right temporal artery. The patient's right face was prepped and draped in normal sterile fashion. A longitudinal incision was created in the preauricular area using a 15 blade. The incision was carried down to the right temporal artery using sharp dissection. The temporal artery was identified dissected circumferentially. The incision was then carried cephalad to the branching point and each branch was dissected circumferentially. Once an adequate length of approximately 3 to 4 cm had been dissected suture ligated each branch as well as the proximal portion of the artery and then ligated the artery and passed it off for a specimen. I irrigated the wound and then inspected for hemostasis. Once hemostasis was achieved the wound was anesthetized with 0.5% Marcaine and then closed in 2 layers using a 3-0 Vicryl running fashion the deep dermal layer and a 4-0 Monocryl in running fashion the subcuticular layer and then dressed with Dermabond. The patient tolerated the procedure well. All sponge, needle, and instrument counts were correct. The patient was taken to the recovery area in stable condition.
--- NOTE | 2019-12-28 13:13 | Post Anesthesia Evaluation ---
- Post Anesthesia Evaluation Patient Participated: Yes Airway Patent: Yes Stable Respiratory Function: Yes Nausea/Vomiting: No Temp > 96.8F: Yes Pain Manageable: Yes Adequeate Hydration: Yes Anesthesia Complications: No Block Receding Appropriately: Not Applicable Patient on Ventilator: No
[2019-12-28 17:55] VITALS: BP 107/57
== END 2019-12-28 08:26 | disposition home or self-care (01) ==
LOC: OR 08:25
PROVIDERS: ATTEND Surgery Vascular Surgery
DX: M31.6 Other giant cell arteritis (principal); E78.00 Pure hypercholesterolemia, unspecified; I10 Essential (primary) hypertension; M19.90 Unspecified osteoarthritis, unspecified site; E11.9 Type 2 diabetes mellitus without complications; E03.9 Hypothyroidism, unspecified; F41.9 Anxiety disorder, unspecified; Z98.890 Other specified postprocedural states; Z88.0 Allergy status to penicillin; Z79.84 Long term (current) use of oral hypoglycemic drugs; Z79.899 Other long term (current) drug therapy; Z72.89 Other problems related to lifestyle; Z86.2 Personal history of diseases of the blood and blood-forming organs and certain disorders involving the immune mechanism
CPT/HCPCS: 36415; 37609; 80053; 82962; 85025; 88305; 88313; J1100; J1885; J2250; J2405; J2704; J3010; J7120

== ENCOUNTER 2020-01-10 10:02 | Outpatient (CLI) | payer BC, MEDICARE ==
[2020-01-10 10:38] LABS: Chol/HDL Ratio 3.21 %
== END 2020-01-10 10:03 | disposition home or self-care (01) ==
LOC: LAB 10:02
PROVIDERS: ATTEND Internal Medicine
DX: E11.65 Type 2 diabetes mellitus with hyperglycemia (principal); E78.5 Hyperlipidemia, unspecified; D64.9 Anemia, unspecified
CPT/HCPCS: 36415; 80061; 82728; 83036; 83540

== ENCOUNTER 2020-01-19 07:45 | Outpatient (CLI) | payer BC, MEDICARE ==
--- NOTE | 2020-01-19 08:32 | XRay Report ---
CHEST 2 VIEWS INDICATION: SHORTNESS OF BREATH. COMPARISON: None available FINDINGS: Support devices: None. Heart: Within normal limits. Lungs/pleura: No acute air space or interstitial disease. No pneumothorax. Additional findings: No abnormality is appreciated in the supraclavicular areas on x-ray. The patient requested this be included due to fullness/puffiness. IMPRESSION: Unremarkable chest. Signer Name: Stew Louise Jr, MD Signed: 01/19/2020 8:28 AM Workstation Name: [id number]
== END 2020-01-19 07:46 | disposition home or self-care (01) ==
LOC: XRAY 07:45
PROVIDERS: ATTEND Internal Medicine
DX: R06.02 Shortness of breath (principal)
CPT/HCPCS: 71046

== ENCOUNTER 2020-01-27 11:53 | Outpatient (CLI) | payer BC, MEDICARE ==
[2020-01-27 12:31] LABS: Bilirubin,Urine NEG (Negative); Blood,Urine NEG (Negative); Color,Urine Straw (Yellow); Protein,Urine <15 mg/dL mg/dL (Negative); Urobilinogen,Urine < 2.0 mg/dL (<2.0)
== END 2020-01-27 11:54 | disposition home or self-care (01) ==
LOC: LAB 11:53
PROVIDERS: ATTEND Internal Medicine
DX: N39.0 Urinary tract infection, site not specified (principal)
CPT/HCPCS: 81001; 87086

== ENCOUNTER 2020-02-28 07:25 | Outpatient (CLI) | payer BC, MEDICARE | END 2020-02-28 07:26 | disposition home or self-care (01) | LOC: LAB 07:25 | PROVIDERS: ATTEND Internal Medicine Rheumatology | DX: M26.69 Other specified disorders of temporomandibular joint (principal) | CPT/HCPCS: 36415; 85652; 86140 ==

== ENCOUNTER 2020-04-17 08:42 | Outpatient (CLI) | payer BC, MEDICARE ==
[2020-04-17 09:23] LABS: Chol/HDL Ratio 3.55 %
== END 2020-04-17 08:43 | disposition home or self-care (01) ==
LOC: LAB 08:42
PROVIDERS: ATTEND Internal Medicine
DX: E11.65 Type 2 diabetes mellitus with hyperglycemia (principal); E78.5 Hyperlipidemia, unspecified
CPT/HCPCS: 36415; 80061; 83036

== ENCOUNTER 2020-05-02 15:11 | Outpatient (CLI) | payer BC, MEDICARE ==
[2020-05-02 16:04] LABS: Blood Urea Nitrogen 17 mg/dL (7-17); Calcium 9.4 mg/dL (8.4-10.2); Hemolysis Index 14
[2020-05-02 16:05] LABS: BUN/Creatinine Ratio 28
[2020-05-02 16:25] LABS: Bilirubin,Urine NEG (Negative); Blood,Urine NEG (Negative); Color,Urine Straw (Yellow); Mucus,Urine FEW /HPF; Protein,Urine <15 mg/dL mg/dL (Negative); RBC,Urine < 1.0 /HPF (0.0-6.0); Urobilinogen,Urine < 2.0 mg/dL (<2.0)
== END 2020-05-02 15:12 | disposition home or self-care (01) ==
LOC: LAB 15:11
PROVIDERS: ATTEND Internal Medicine
DX: N39.0 Urinary tract infection, site not specified (principal)
CPT/HCPCS: 36415; 80048; 81001; 87086

== ENCOUNTER 2020-05-03 07:36 | Outpatient (CLI) | payer BC, MEDICARE ==
--- NOTE | 2020-05-03 09:35 | Cat Scan Report ---
CT ABDOMEN AND PELVIS WITH CONTRAST INDICATION: Abdominal pain and distention. TECHNIQUE: Axial CT images were obtained through the abdomen and pelvis after IV contrast. All CT scans at this location are performed using CT dose reduction for ALARA by means of automated exposure control. COMPARISON: None available. FINDINGS: LOWER CHEST: Cardiomegaly. Mild bilateral lower lobe linear scarring/atelectasis LIVER: No significant abnormality. GALLBLADDER: No significant abnormality. BILE DUCTS: No significant abnormality. PANCREAS: No significant abnormality. SPLEEN: No significant abnormality. Accessory splenule. ADRENALS: No significant abnormality. RIGHT KIDNEY and URETER: No significant abnormality. LEFT KIDNEY and URETER: No significant abnormality. STOMACH and SMALL BOWEL: No significant abnormality. COLON: Mild sigmoid diverticulosis without diverticulitis. APPENDIX: No significant abnormality. PERITONEUM: No free fluid. No free air. No fluid collection. LYMPH NODES: No significant adenopathy. AORTA and ARTERIES: No significant abnormality. IVC and VEINS: No significant abnormality. URINARY BLADDER: No significant abnormality. REPRODUCTIVE ORGANS: 4 cm leiomyoma left uterine body. ADDITIONAL FINDINGS: None. SKELETAL SYSTEM: Moderate discogenic degenerative disease L5-S1 IMPRESSION: 1. No significant abnormality. 2. Leiomyomatous uterus. 3. Mild sigmoid diverticulosis without diverticulitis Signer Name: Mihai Braswell MD Signed: 05/03/2020 9:30 AM Workstation Name: [id number]
== END 2020-05-03 07:37 | disposition home or self-care (01) ==
LOC: CT 07:36
PROVIDERS: ATTEND Internal Medicine
DX: D25.9 Leiomyoma of uterus, unspecified (principal); K57.30 Diverticulosis of large intestine without perforation or abscess without bleeding; I51.7 Cardiomegaly; J98.11 Atelectasis; R14.0 Abdominal distension (gaseous); M47.817 Spondylosis without myelopathy or radiculopathy, lumbosacral region
CPT/HCPCS: 74177; Q9967

== ENCOUNTER 2020-06-16 09:29 | Outpatient (CLI) | payer BC, MEDICARE | END 2020-06-16 09:30 | disposition home or self-care (01) | LOC: LAB 09:29 | PROVIDERS: ATTEND Internal Medicine Rheumatology | DX: M35.3 Polymyalgia rheumatica (principal) | CPT/HCPCS: 36415; 85652; 86140 ==

== ENCOUNTER 2020-08-29 11:00 | Outpatient (CLI) | payer BC, MEDICARE | END 2020-08-29 11:01 | disposition home or self-care (01) | LOC: LAB 11:00 | PROVIDERS: ATTEND Internal Medicine Rheumatology | DX: M35.3 Polymyalgia rheumatica (principal) | CPT/HCPCS: 36415; 85652; 86140 ==

== ENCOUNTER 2020-09-08 08:14 | Outpatient (CLI) | payer BC, MEDICARE ==
[2020-09-08 09:32] LABS: Chol/HDL Ratio 4.58 %
== END 2020-09-08 08:15 | disposition home or self-care (01) ==
LOC: LAB 08:14
PROVIDERS: ATTEND Internal Medicine
DX: E78.5 Hyperlipidemia, unspecified (principal); E11.65 Type 2 diabetes mellitus with hyperglycemia
CPT/HCPCS: 36415; 80061; 83036

== ENCOUNTER 2020-10-03 07:11 | Outpatient (CLI) | payer BC, MEDICARE ==
--- NOTE | 2020-10-03 11:02 | Mammography Report ---
DIGITAL SCREENING MAMMOGRAM WITH CAD, 10/03/2020 CLINICAL INFORMATION / INDICATION: Routine screening; patient reports increasing palpable abnormality on the left in the area of prior surgery TECHNIQUE: Digital bilateral 2D mammography was obtained in the craniocaudal and mediolateral obliqu e projections. This examination was interpreted with the benefit of Computer-Aided Detection analysis . COMPARISON: 10/01/2019 and prior FINDINGS: Breast Density: There are scattered areas of fibroglandular density. No dominant mass, suspicious calcifications, or architectural distortion in the right breast. Bilateral surgical changes, dystrophic calcifications, and oil cysts are again seen. On MLO view of the left breast in the area of surgical scar there appears to be increasing density in the posterior inferior aspect. IMPRESSION: Mildly increased density at the scar site on the left. In combination with patient's palp able complaint, I would suggest further evaluation with ultrasound and possibly additional mammograph ic views if needed Follow up recommendation: As above BI-RADS Category 0: Incomplete. Needs additional imaging evaluation and/or prior mammograms for susanne esposito. A "normal" or negative report should not discourage follow up or biopsy of a clinically significant f inding. A written summary of these findings will be mailed to the patient. The patient will be entered into a mammography reporting system which will generate a reminder letter for the patient's next appointmen t at the appropriate interval. The [employer] recommends yearly mammograms starting at age 40 and continuing as l juliann as a woman is in good health. Breast MRI is recommended for women with an approximate 20-25% or greater lifetime risk of breast cancer, including women with a strong family history of breast or ova gautam cancer or who have been treated for Hodgkin's disease. Signer Name: Jero Mejía MD Signed: 10/03/2020 10:58 AM Workstation Name: [id number]
== END 2020-10-03 07:12 | disposition home or self-care (01) ==
LOC: MAMMO 07:11
PROVIDERS: ATTEND Internal Medicine
DX: Z12.31 Encounter for screening mammogram for malignant neoplasm of breast (principal); R06.02 Shortness of breath; R94.31 Abnormal electrocardiogram [ECG] [EKG]; I10 Essential (primary) hypertension; E11.9 Type 2 diabetes mellitus without complications; E78.2 Mixed hyperlipidemia
CPT/HCPCS: 77067; 93306

== ENCOUNTER 2020-10-17 06:07 | Outpatient (CLI) | payer BC, MEDICARE ==
[2020-10-10 09:09] LABS: Blood Urea Nitrogen 15 mg/dL (7-17)
[~2020-10-17 06:07] MED LIST: ATROPINE 0.1% (1 MG/10 ML) CARDIAC SYRINGE ONE; METOPROLOL TARTRATE 5 MG/5 ML INJ IV ONE; METOPROLOL TARTRATE 50 MG TAB PO NR; NITROGLYCERIN 0.4 MG TAB SUBL SL ONE; SODIUM CHLORIDE 0.9% 500 ML 500 ML IV SCH
[2020-10-17] MEDS ORDERED: NITROGLYCERIN 0.4 MG TAB SUBL SL NR (07:00)
[2020-10-17 07:31] VITALS: BP 101/58
[2020-10-17] MEDS ORDERED: METOPROLOL TARTRATE 50 MG TAB ONE (07:37)
[2020-10-17] MEDS ORDERED: METOPROLOL TARTRATE 50 MG TAB PO ONE (07:39)
== END 2020-10-17 09:35 | disposition home or self-care (01) ==
LOC: CATHLABREC 06:07
PROVIDERS: ATTEND Internal Medicine
DX: R07.89 Other chest pain (principal)
CPT/HCPCS: 36415; 82565; 84520; J0461; J7040

== ENCOUNTER 2020-10-24 09:01 | Outpatient (CLI) | payer BC, MEDICARE ==
--- NOTE | 2020-10-24 10:39 | Ultrasound Report ---
LEFT DIGITAL DIAGNOSTIC MAMMOGRAM WITH CAD CONVENTIONAL, 10/24/2020 LEFT LIMITED BREAST ULTRASOUND CLINICAL INFORMATION / INDICATION: Left breast lump. TECHNIQUE: Digital left mammographic imaging was performed. Spot compression views were obtained. Soliz ited ultrasound was performed. This examination was interpreted with the benefit of Computer-Aided De tection (CAD) analysis. COMPARISON: Bilateral mammography 03/31/18 05/03/20. FINDINGS: Breast Density: The breasts are almost entirely fatty. MAMMOGRAPHIC FINDINGS: The palpable abnormality in the upper outer left breast corresponds to an area of fat necrosis with multiple adjacent partially calcified oil cysts present. Scarring in the superi or breast posteriorly on the MLO view on screening mammography has not changed over serial studies. T his does not correspond to a palpable abnormality. ULTRASOUND FINDINGS: Targeted ultrasound evaluation was performed of the area of interest. There ar e 2 adjacent partially calcified oil cysts at the site of the palpable abnormality at the 1:00 positi on 5 cm from the nipple. The combined dimension is approximately 2.4 cm. This is confirmed on the spo t compression mammographic images. There is an incidental benign-appearing lymph node in the upper outer quadrant in the region of the p atient's scar which measures 4.4 mm short axis. IMPRESSION: The patient's palpable abnormality corresponds to an area of fat necrosis/oil cysts Follow up recommendation: Routine yearly BI-RADS Category 2: Benign. A "normal" or negative report should not discourage follow up or biopsy of a clinically significant f inding. A written summary of these findings will be mailed to the patient. The patient will be entered into a mammography reporting system which will generate a reminder letter for the patient's next appointmen t at the appropriate interval. According to the [employer], yearly mammograms are recommended starting at age 40 and continuing as long as a woman is in good health. Breast MRI is recommended for women with an cheri roximately 20-25% or greater lifetime risk of breast cancer, including women with a strong family his tory of breast or ovarian cancer and women who have been treated for Hodgkin's disease. Signer Name: Karl Augustin MD Signed: 10/24/2020 10:35 AM Workstation Name: [id number]
== END 2020-10-24 09:02 | disposition home or self-care (01) ==
LOC: MAMMO 09:01
PROVIDERS: ATTEND Internal Medicine
DX: N60.02 Solitary cyst of left breast (principal)

== ENCOUNTER 2020-11-09 06:20 | Day surgery (SDC) | payer BC, MEDICARE ==
[2020-11-09 07:19] LABS: Basophils # (Auto) 0.1 K/mm3 (0.0-0.1); Eosinophils # (Auto) 0.2 K/mm3 (0.0-0.4); Eosinophils % (Auto) 1.5 % (0.0-4.3); Hematocrit 42.5 % (30.3-42.9); Lymphocytes # (Auto) 3.5 K/mm3 (1.2-5.4); Lymphocytes % (Auto) 31.6 % (13.4-35.0); Mean Corpuscular HGB Conc 33 % (30-34); Mean Corpuscular Volume 80 fl (79-97); Monocytes # (Auto) 0.9 K/mm3 (0.0-0.8); Monocytes % (Auto) 7.9 % (0.0-7.3); Platelet Count 205 K/mm3 (140-440); Red Blood Count 5.33 M/mm3 (3.65-5.03); Red Cell Distribution Width 16.3 % (13.2-15.2)
[2020-11-09 07:29] LABS: INR 0.78 (0.87-1.13)
[2020-11-09] MEDS ORDERED: ASPIRIN EC 325 MG TAB PO ONE (07:30)
[2020-11-09 07:31] LABS: Blood Urea Nitrogen 13 mg/dL (7-17); Calcium 9.7 mg/dL (8.4-10.2); Hemolysis Index 4
[2020-11-09 07:37] LABS: BUN/Creatinine Ratio 33
[2020-11-09] MEDS ORDERED: fentaNYL 100 MCG/2 ML INJ ONE (08:15)
[2020-11-09] MEDS ORDERED: HEPARIN/NS 5000 UNIT/500ML 1,000 ML IR ONE (08:16)
[2020-11-09] MEDS ORDERED: HEPARIN 10,000 UNITS/10 ML VIAL ONE (08:16)
[2020-11-09] MEDS ORDERED: VERAPAMIL 5 MG/2 ML INJ ONE (08:16)
[2020-11-09] MEDS ORDERED: LIDOCAINE (2%) 20 MG/1 ML VIAL 20 ML MDV INFILTRATI ONE (08:17)
[2020-11-09] MEDS ORDERED: NITROGLYCERIN SYRINGE 3 ML ONE (08:17)
[2020-11-09] MEDS: SODIUM CHLORIDE 0.9% 500 ML 500 ML IV SCH ×2 (08:18→09:27)
[2020-11-09] MEDS: MIDAZOLAM 2 MG/2 ML INJ ONE ×2 (09:04→09:06)
--- NOTE | 2020-11-09 09:47 | Cardiac Catherization Report ---
DATE OF SERVICE: 11/09/2020 LEFT HEART CATHETERIZATION CLINICAL INFORMATION: This is a 65-year-old female who is having persistent shortness of breath with exertion despite medical therapy. Procedure was done under moderate sedation, started at 9:04, finished at 9:21; 17 minutes of moderate sedation. DESCRIPTION OF PROCEDURE: Procedure was done via the right radial artery, sterile technique and local anesthesia, a 6-Austrian radial sheath inserted. There was moderate severe tortuosity. I had to use a Glidewire to get into the ascending aorta. Left system engaged with JL3.5 catheter. Left main is large caliber vessel, patent and bifurcates to large caliber vessel in the proximal and then trifurcates into medium caliber diagonal 1 that is patent, medium caliber septal patent. The mid LAD after the bifurcation is patent. Then, at the distal one-third of the LAD becomes a small caliber vessel, less than 2 mm, patent. Circumflex, large caliber vessel, goes into a medium caliber OM1 and OM2 that are patent. RCA engaged with JR4 catheter, is a large, dominant vessel, patent from proximally and distally. PDA and PLB are medium caliber, is patent. LV gram done in CZECH and WOLF view shows normal LV function, LVEDP 20-25 mmHg, LV is 144, aortic is 142/80, no gradient across the aortic valve on pullback. The 5-Austrian catheters all taken over a guidewire, 6-Austrian sheath was discontinued, radial band applied. No hematoma, no bleeding. SUMMARY: Left main patent, LAD patent, diagonal patent, circumflex patent, OM1 and OM2 patent, RCA patent, normal coronary arteries, normal LV function. Continue medical therapy and discussed this with the patient and the patient's family in detail. TID: [id number] RECEIPT: [id number] JAY/DORIS
--- NOTE | 2020-11-09 09:51 | Short Stay Summary ---
Short Stay Documentation Date of service: 11/09/20 Narrative H&P: sob with exertion being persistent, unable to do ccta, negative stress test 2018 - History Past Medical History: diabetes, hypertension Past Surgical History: Other (foot surgery) Social history: no significant social history - Allergies and Medications Current Medications: Allergies metformin Allergy (Verified 12/27/19 12:54) Rash Penicillins Allergy (Verified 12/27/19 12:54) Dizziness Home Medications Medication Instructions Recorded Confirmed Last Taken Type Levothyroxine [Synthroid] 50 mcg PO QHS 12/01/15 11/09/20 11/08/20 History glipiZIDE [Glucotrol] 10 mg PO BID 12/01/15 11/09/20 11/08/20 History Dapagliflozin Propanediol [Farxiga] 10 mg PO QHS 04/09/17 11/09/20 11/08/20 History Trulicity 3 mg SUB-Q QWEEK 06/01/18 11/09/20 11/08/20 History AtorvaSTATin [Lipitor] 40 mg PO QHS 12/27/19 11/09/20 11/08/20 History Chlorthalidone [Thalitone] 12.5 mg PO HS 12/27/19 11/09/20 11/08/20 History Hydroxyzine HCl [hydrOXYzine] 25 mg PO PRN PRN 12/27/19 11/09/20 11/08/20 History Sertraline [Zoloft] 50 mg PO QDAY 12/27/19 11/09/20 11/08/20 History atenoloL [Tenormin] 25 mg PO HS 12/27/19 11/09/20 11/08/20 History Ascorbic Acid [Vitamin C] 500 mg PO DAILY 11/09/20 11/09/20 11/08/20 History Aspirin [Vazalore] 81 mg PO DAILY 11/09/20 11/09/20 11/08/20 History Cholecalciferol (Vitamin D3) 2,000 unit PO QDAY 11/09/20 11/09/20 11/08/20 History [Vitamin D3 2,000 UNIT CAP] Cyanocobalamin (Vitamin B-12) 5,000 mcg PO DAILY 11/09/20 11/09/20 11/08/20 History [Vitamin B12] Magnesium 250 mg PO DAILY 0911/09/20 11/08/20 History Multivit-Min/Ascorbic/Herb 124 1 each PO DAILY 11/09/20 11/09/20 11/09/20 History [Airborne Chewable Tablet] Active Medications Sodium Chloride (Nacl 0.9% 500 Ml) 500 mls @ 50 mls/hr IV DIRECT JUDY Stop: 11/09/20 16:59 Last Admin: 11/09/20 09:27 Dose: 50 mls/hr Documented by: - Physical exam General appearance: no acute distress Integumentary: no rash HEENT: PERRLA Lungs: Clear to auscultation Breasts: deferred Heart: Regular rate, No murmurs Gastrointestinal: normal Female Genitourinary: deferred Rectal Exam: deferred Extremities: no ischemia Neurological: Normal gait - Brief post op/procedure progress note Date of procedure: 11/09/20 Pre-op diagnosis: sob Post-op diagnosis: same Procedure: see report normal coronaries and normal lv function Anesthesia: local Estimated blood loss: minimal Pathology: none - Disposition Condition at discharge: Good Disposition: 01 HOME / SELF CARE / HOMELESS - Discharge Diagnoses (1) Hypertension Status: Chronic Qualifiers: Hypertension type: primary hypertension Qualified Code(s): I10 - Essential (primary) hypertension (2) SOB (shortness of breath) Status: Chronic Short Stay Discharge Plan Activity: advance as tolerated Diet: low fat, low cholesterol, low salt, diabetic Wound: keep clean and dry Follow up with: KEYONA AGUILAR MD [Primary Care Provider] - 7 Days
[2020-11-09] MEDS ORDERED: traMADol 50 MG TAB PO PRN (10:00)
[2020-11-09] MEDS ORDERED: HYDROcodone/ACETAMINOPHEN 5-325 MG TAB PO PRN (10:00)
[2020-11-09 12:03] VITALS: BP 96/63
--- NOTE | 2020-11-10 08:45 | Electrocardiograph Report ---
[facility] Test Date: 2020-11-09 Test Time: 08:08:43 Pat Name: RAMON QUIROS CHILHOWEE Department: Room: Gender: F [employer] Manager: SHAY : 1955 Requested By: PAUL NORTON Order Number: [id number] Reading MD: Paul Norton Measurements Intervals [place] Rate: 71 P: 55 AR: 233 QRS: -80 QRSD: 132 T: 19 QT: 436 QTc: 473 Interpretive Statements Sinus rhythm Prolonged AR interval Right bundle branch block No previous ECG available for comparison Electronically Signed On 11-10-2020 8:45:19 EDT by Paul Norton
== END 2020-11-09 13:00 | disposition home or self-care (01) ==
LOC: CATHLABREC 06:20
PROVIDERS: ATTEND Internal Medicine
DX: R07.89 Other chest pain (principal); R94.31 Abnormal electrocardiogram [ECG] [EKG]; R53.83 Other fatigue; R06.02 Shortness of breath; I10 Essential (primary) hypertension; E78.00 Pure hypercholesterolemia, unspecified; E03.9 Hypothyroidism, unspecified; E11.9 Type 2 diabetes mellitus without complications; M19.90 Unspecified osteoarthritis, unspecified site; F41.9 Anxiety disorder, unspecified; Z79.84 Long term (current) use of oral hypoglycemic drugs; Z79.899 Other long term (current) drug therapy; Z88.0 Allergy status to penicillin; Z88.8 Allergy status to other drugs, medicaments and biological substances; Z98.890 Other specified postprocedural states
CPT/HCPCS: 36415; 80048; 85025; 85610; 85730; 93005; 93458; 99156; C1769; C1894; J1644; J2250; J3010; J7040; Q9967

== ENCOUNTER 2021-01-22 07:12 | Outpatient (CLI) | payer BC, MEDICARE ==
[2021-01-22 07:55] LABS: Basophils # (Auto) 0.1 K/mm3 (0.0-0.1); Basophils % (Auto) 0.7 % (0.0-1.8); Eosinophils # (Auto) 0.2 K/mm3 (0.0-0.4); Eosinophils % (Auto) 1.7 % (0.0-4.3); Hematocrit 45.8 % (30.3-42.9); Hemoglobin 14.5 gm/dl (10.1-14.3); Lymphocytes # (Auto) 3.3 K/mm3 (1.2-5.4); Lymphocytes % (Auto) 31.8 % (13.4-35.0); Mean Corpuscular HGB Conc 32 % (30-34); Mean Corpuscular Volume 81 fl (79-97); Monocytes # (Auto) 0.9 K/mm3 (0.0-0.8); Monocytes % (Auto) 8.5 % (0.0-7.3); Platelet Count 205 K/mm3 (140-440); Red Blood Count 5.65 M/mm3 (3.65-5.03); Red Cell Distribution Width 16.9 % (13.2-15.2)
[2021-01-22 08:05] LABS: Alanine Aminotransferase 19 units/L (7-56); Albumin 4.3 g/dL (3.9-5); Blood Urea Nitrogen 15 mg/dL (7-17); Calcium 9.7 mg/dL (8.4-10.2); Chol/HDL Ratio 3.92 %; HDL Cholesterol 41 mg/dL (40-59); Hemolysis Index 7; LDL Cholesterol,Direct 83 mg/dL (50-130)
[2021-01-22 08:10] LABS: BUN/Creatinine Ratio 30
[2021-01-22 08:16] LABS: Bilirubin,Urine NEG (Negative); Blood,Urine NEG (Negative); Color,Urine Yellow (Yellow); Mucus,Urine 1+ /HPF; Urobilinogen,Urine < 2.0 mg/dL (<2.0)
[2021-01-22 08:50] LABS: Erythrocyte Sedimentation Rate 11 mm/Hr (0-20)
== END 2021-01-22 07:13 | disposition home or self-care (01) ==
LOC: LAB 07:12
PROVIDERS: ATTEND Internal Medicine
DX: Z00.00 Encounter for general adult medical examination without abnormal findings (principal); E11.65 Type 2 diabetes mellitus with hyperglycemia; E03.9 Hypothyroidism, unspecified; E55.9 Vitamin D deficiency, unspecified; E78.5 Hyperlipidemia, unspecified; N39.0 Urinary tract infection, site not specified
CPT/HCPCS: 36415; 80053; 80061; 81001; 82043; 82306; 83036; 84443; 85025; 85652; 87086

== ENCOUNTER 2021-04-11 11:39 | Outpatient (CLI) | payer BC, MEDICARE | END 2021-04-11 11:40 | disposition home or self-care (01) | LOC: LAB 11:39 | PROVIDERS: ATTEND Student in an Organized Health Care Education/Training Program | DX: R14.0 Abdominal distension (gaseous) (principal) | CPT/HCPCS: 36415; 87338 ==

== ENCOUNTER 2021-06-13 09:41 | Outpatient (CLI) | payer BC ==
[2021-06-13 10:38] LABS: Chol/HDL Ratio 3.97 %
== END 2021-06-13 09:42 | disposition home or self-care (01) ==
LOC: LAB 09:41
PROVIDERS: ATTEND Internal Medicine
DX: E11.65 Type 2 diabetes mellitus with hyperglycemia (principal); E78.5 Hyperlipidemia, unspecified
CPT/HCPCS: 36415; 80061

== ENCOUNTER 2021-08-06 10:20 | Outpatient (CLI) | payer BC, MEDICARE ==
--- NOTE | 2021-08-06 13:23 | XRay Report ---
Bilateral feet-3 views each INDICATION: G60.8 I70.209. Chronic generalized bilateral foot pain COMPARISON: None available. 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 No rmal alignment. Soft tissues are unremarkable. Signer Name: Rafael Curtis MD Signed: 08/06/2021 1:18 PM Workstation Name: [id number]
== END 2021-08-06 10:21 | disposition home or self-care (01) ==
LOC: XRAY 10:20
PROVIDERS: ATTEND Podiatrist Foot & Ankle Surgery
DX: M19.072 Primary osteoarthritis, left ankle and foot (principal); M19.071 Primary osteoarthritis, right ankle and foot; I70.203 Unspecified atherosclerosis of native arteries of extremities, bilateral legs; G60.8 Other hereditary and idiopathic neuropathies

== ENCOUNTER 2021-08-10 08:59 | Outpatient (CLI) | payer BC, MEDICARE | END 2021-08-10 09:00 | disposition home or self-care (01) | LOC: LAB 08:59 | PROVIDERS: ATTEND Student in an Organized Health Care Education/Training Program | DX: R14.0 Abdominal distension (gaseous) (principal) | CPT/HCPCS: 36415; 87338 ==

== ENCOUNTER 2021-10-08 08:51 | Outpatient (CLI) | payer BC, MEDICARE ==
--- NOTE | 2021-10-10 10:40 | Mammography Report ---
DIGITAL SCREENING MAMMOGRAM WITH CAD, 10/08/2021 CLINICAL INFORMATION / INDICATION: Routine screening mammography. Z12.31 TECHNIQUE: Digital bilateral 2D mammography was obtained in the craniocaudal and mediolateral obliqu e projections. This examination was interpreted with the benefit of Computer-Aided Detection analysis . COMPARISON: 10/03/2020 and 10/01/2019 FINDINGS: Breast Density: There are scattered areas of fibroglandular density. No dominant mass, suspicious calcifications, or architectural distortion in either breast. Old postoperative change in the left. IMPRESSION: No mammographic evidence of malignancy. Follow up recommendation: Routine yearly screening mammogram. BI-RADS Category 2: BENIGN. A "normal" or negative report should not discourage follow up or biopsy of a clinically significant f inding. A written summary of these findings will be mailed to the patient. The patient will be entered into a mammography reporting system which will generate a reminder letter for the patient's next appointmen t at the appropriate interval. The [employer] recommends yearly mammograms starting at age 40 and continuing as l juliann as a woman is in good health. Breast MRI is recommended for women with an approximate 20-25% or greater lifetime risk of breast cancer, including women with a strong family history of breast or ova gautam cancer or who have been treated for Hodgkin's disease. Signer Name: Rafael Curtis MD Signed: 10/10/2021 10:36 AM Workstation Name: [id number]
== END 2021-10-08 08:52 | disposition home or self-care (01) ==
LOC: MAMMO 08:51
PROVIDERS: ATTEND Obstetrics & Gynecology
DX: Z12.31 Encounter for screening mammogram for malignant neoplasm of breast (principal)
CPT/HCPCS: 77067

== ENCOUNTER 2021-10-25 08:41 | Outpatient (CLI) | payer BC, MEDICARE ==
[2021-10-25 10:41] LABS: Chol/HDL Ratio 3.62 %
== END 2021-10-25 08:42 | disposition home or self-care (01) ==
LOC: LAB 08:41
PROVIDERS: ATTEND Internal Medicine
DX: E11.65 Type 2 diabetes mellitus with hyperglycemia (principal); E78.5 Hyperlipidemia, unspecified; E03.9 Hypothyroidism, unspecified
CPT/HCPCS: 36415; 80061; 83036; 84443

== ENCOUNTER 2021-10-31 09:49 | Outpatient (CLI) | payer BC, MEDICARE | END 2021-10-31 09:50 | disposition home or self-care (01) | LOC: LAB 09:49 | PROVIDERS: ATTEND Obstetrics & Gynecology | DX: Z01.419 Encounter for gynecological examination (general) (routine) without abnormal findings (principal) | CPT/HCPCS: 87591 ==

== ENCOUNTER 2021-11-05 07:36 | Outpatient (CLI) | payer BC, MEDICARE ==
--- NOTE | 2021-11-05 09:14 | Mammography Report ---
DEXA BONE DENSITY SCAN INDICATION / CLINICAL INFORMATION: M85.9 Disorder of bone density and structure, unspecified. 66 years Female COMPARISON: None available. LUMBAR SPINE, L1-L4: - Bone mineral density (BMD) = 0.963 g/cm2. - T-score = -0.8 - Z-score = 1.2 Change (%) since most recent prior (if available): None available. LEFT HIP, NECK : - Bone mineral density (BMD) = 0.664 g/cm2. - T-score = -1.7 - Z-score = 0.0 Change (%) since most recent prior (if available): None available. IMPRESSION: 1. WHO Classification: Osteopenia. Fracture Risk: Increased. 2. 10-Year Fracture Risk (FRAX) = Major Osteoporotic 9.8% / Hip: 1.3% FRAX generally not reported for patients with normal or osteoporotic BMD, in [id number] pete ents younger than age 50, or in patients undergoing pharmacotherapy BMD Reporting Guidelines (ISCD, 2015) BMD Reporting in Postmenopausal Women and in Men Age 50 and Older - T-scores are preferred. - The WHO densitometric classification is applicable. BMD Reporting in Females Prior to Menopause and in Males Younger Than Age 50 - Z-scores, not T-scores, are preferred. This is particularly important in children. - A Z-score of -2 or lower is defined as below the expected range for age, and a Z-score above -2.0 i s within the expected range for age. - Osteoporosis cannot be diagnosed in men under age 50 on the basis of BMD alone. - The WHO diagnostic criteria may be applied to women in the menopausal transition. http://www.iscd.org/official-positions/3775-oytt-zqsxuvpb-positions-adult/ Signer Name: Willem Boggs DO Signed: 11/05/2021 9:10 AM Workstation Name: [id number]
== END 2021-11-05 07:37 | disposition home or self-care (01) ==
LOC: MAMMO 07:36
PROVIDERS: ATTEND Obstetrics & Gynecology
DX: M85.88 Other specified disorders of bone density and structure, other site (principal)
CPT/HCPCS: 77080